=== PATIENT | male | born 1950 | race Caucasian/White ===

== ENCOUNTER → 2017-03-31 | Outpatient (CLI) | payer MEDICARE ==
[~2017-03-31] MED LIST: CATHETER FLUSH 10 ML SYR IV PRN; IOHEXOL 350 MG/ML 100 ML (OMNIPAQUE 350) VIAL IV ONE; NS 100 ML (IVPB) BAG IV ONE
[2017-03-31 12:32] LABS: BASOPHILS % (AUTO) 0 % (0-10); EOSINOPHILS # (AUTO) 0.1 10^3/uL (0.0-0.3); EOSINOPHILS % (AUTO) 1 % (0-10); LYMPHOCYTES % (AUTO) 20 % (12-44); MEAN CORPUSCULAR HEMOGLOBIN 29 PG (25-34); MEAN CORPUSCULAR HGB CONC 34 G/DL (32-36); MEAN CORPUSCULAR VOLUME 86 FL (80-99); MEAN PLATELET VOLUME 9.7 FL (7.4-10.4); MONOCYTES # (AUTO) 0.6 X 10^3 (0.0-1.0); MONOCYTES % (AUTO) 11 % (0-12); NEUTROPHILS # (AUTO) 3.5 X 10^3 (1.8-7.8); NEUTROPHILS % (AUTO) 68 % (42-75); PLATELET COUNT 198 10^3/uL (130-400); RED BLOOD COUNT 4.96 10^6/uL (4.35-5.85); RED CELL DISTRIBUTION WIDTH 13.7 % (10.0-14.5); WHITE BLOOD COUNT 5.1 10^3/uL (4.3-11.0)
[2017-03-31 12:50] LABS: ALANINE AMINOTRANSFERASE 17 U/L (0-55); ALBUMIN 4.4 G/DL (3.2-4.5); ANION GAP 11 MMOL/L (5-14); ASPARTATE AMINO TRANSFERASE 16 U/L (5-34); BILIRUBIN,TOTAL 0.6 MG/DL (0.1-1.0); BLOOD UREA NITROGEN 14 MG/DL (7-18); BUN/CREATININE RATIO 18; CALCIUM 9.5 MG/DL (8.5-10.1); CARBON DIOXIDE 23 MMOL/L (21-32); CHLORIDE 104 MMOL/L (98-107); CHOLESTEROL 153 MG/DL (< 200); CREATININE SERUM 0.76 MG/DL (0.60-1.30); DIRECT LDL 92 MG/DL (1-129); GFR ESTIMATED > 60; GLUCOSE 103 MG/DL (70-105); SODIUM 138 MMOL/L (135-145); VLDL CHOLESTEROL 21 MG/DL (5-40)
[2017-03-31 13:27] LABS: TRIGLYCERIDES 105 MG/DL (<150)
--- NOTE | 2017-03-31 14:05 | Diagnostic Imaging Report ---
PROCEDURE: CT head with and without contrast. TECHNIQUE: Multiple contiguous axial images were obtained through the brain before and after the administration of intravenous contrast. INDICATION: Off-balance. COMPARISON: None. FINDINGS: There is a large predominantly low-density, likely cystic, mass within the right frontal lobe. There is some peripheral ring-type enhancement. Area in question measures approximately 5.3 x 5.9 cm in axial dimension and approximately 3.8 cm in CC dimension based on coronal reformats created on a separate workstation. There is moderate surrounding edema and mass effect. There is midline shift of approximately 12 mm to the left. There is also effacement of the subarachnoid space at the level mid brain consistent with probable early uncal herniation. There is no evidence of intra-or extra-axial intracranial hemorrhage. There is no large area of loss of rodriguez-white matter junction differentiation to suggest acute territorial infarct. Bony calvarium is intact. Included portions of paranasal sinuses are clear. Mastoid air cells are clear as well. IMPRESSION: 1. Predominantly cystic mass within the right frontal lobe. 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 Large intraparenchymal abscess is not entirely excluded. Further evaluation with pre-and postcontrast MR brain is recommended. 2. Moderate surrounding mass effect, cerebral edema, and right to left midline shift. Surgical consultation is also recommended. Results are discussed with Dr. Mckeon by Dr. Armenta at approximately 1345 hours on 03/31/2017. Dictated by: Dictated on workstation # [id number]
== END ==
LOC: RAD 12:07
PROVIDERS: ATTEND Family Medicine
DX: G93.89 Other specified disorders of brain (principal); G93.6 Cerebral edema; E78.2 Mixed hyperlipidemia; N40.0 Benign prostatic hyperplasia without lower urinary tract symptoms; G51.0 Bell's palsy; R63.4 Abnormal weight loss
CPT/HCPCS: 36415; 70470; 80053; 80061; 84153; 85025

== ENCOUNTER 2017-06-18 13:38 | Outpatient (RCR) | payer MEDICARE | END 2017-07-26 | disposition home or self-care (01) | LOC: ONC 13:38 | PROVIDERS: ATTEND Radiology Radiation Oncology | DX: C71.1 Malignant neoplasm of frontal lobe; Z51.0 Encounter for antineoplastic radiation therapy | CPT/HCPCS: 77300; 77301; 77334; 77336; 77338; 77385; 77386; 77470; 99214 ==